=== PATIENT | female | born 1985 | race Hispanic/Latino ===

== ENCOUNTER → 2023-06-22 | Outpatient (CLI) | payer OTHER ==
[2023-06-22 17:25] LABS: HIV 1&2 SCREEN NEGATIVE (NEGATIVE)
== END ==
LOC: M PLALAB 10:46
PROVIDERS: ATTEND Advanced Practice Midwife
DX: O09.523 Supervision of elderly multigravida, third trimester (principal); Z3A.00 Weeks of gestation of pregnancy not specified

== ENCOUNTER → 2023-07-29 | Outpatient (CLI) | payer OTHER ==
[2023-07-29 15:48] LABS: HEPATITIS B CORE ANTIBODY IGM NEGATIVE (NEGATIVE); HEPATITIS C VIRUS ABY INDEX 0.02 INDEX (<0.8)
== END ==
LOC: M LAB 13:23
PROVIDERS: ATTEND Physician Assistant
DX: Z01.84 Encounter for antibody response examination (principal); Z11.1 Encounter for screening for respiratory tuberculosis

== ENCOUNTER → 2023-08-10 | Outpatient (REF) | payer OTHER | LOC: M SFHCWAGY 12:54 | PROVIDERS: ATTEND Advanced Practice Midwife | DX: Z36.85 Encounter for antenatal screening for Streptococcus B (principal); Z3A.36 36 weeks gestation of pregnancy ==

== ENCOUNTER → 2023-08-12 | Outpatient (CLI) | payer OTHER | LOC: M LAB 11:49 | PROVIDERS: ATTEND Physician Assistant | DX: Z11.3 Encounter for screening for infections with a predominantly sexual mode of transmission (principal) ==

== ENCOUNTER 2023-09-03 20:18 | Inpatient (IN) | payer OTHER ==
[~2023-09-03] VITALS: Ht 160 cm; Wt 67.9 kg
[2023-09-03 20:28] VITALS: BP 116/73
[2023-09-03] MEDS ORDERED: LIDOCAINE 1% MDV 20ML VIAL INFIL PRN (20:50)
[2023-09-03] MEDS ORDERED: TRANEXAMIC ACID INJection 1,000 MG in NS 100 ML IV PRN (20:50)
[2023-09-03] MEDS ORDERED: METHYLERGONOVINE MALEATE 0.2MG/ML 1ML VIAL IM PRN (20:50)
[2023-09-03] MEDS ORDERED: CARBOPROST TROMETHAMINE 250 MCG/ML AMP IM PRN (20:50)
[2023-09-03] MEDS ORDERED: OXYTOCIN DRIP 30 UNITS in IV 1 EA IV PRN (20:50)
[2023-09-03 21:43] LABS: MEAN CORPUSCULAR HEMOGLOBIN 32.3 pg (27.0-33.0); MEAN CORPUSCULAR HGB CONC 35.1 g/dl (32.0-36.5); MEAN CORPUSCULAR VOLUME 91.8 fl (80.0-96.0); PLATELET COUNT, AUTOMATED 179 10^3/uL (150-450); RED BLOOD COUNT 4.03 10^6/uL (4.00-5.40); WHITE BLOOD COUNT 9.4 10^3/uL (4.0-10.0)
[2023-09-03] MEDS ORDERED: PRENTAB9 PO (21:57)
[2023-09-03 23:42] VITALS: BP 96/54
[2023-09-04] VITALS (29 sets, daily range): BP systolic 96–185; BP diastolic 53–132; TEMP 98.3; O2SAT 97–99
[2023-09-04] MEDS: LR 1,000 ML IV ONE (02:16)
[2023-09-04] MEDS ORDERED: ePHEDrine SULFATE 25 MG/5 ML(5MG/ML) SYRINGE IVP PRN (02:50)
[2023-09-04] MEDS ORDERED: diphenhydrAMINE 50MG/ML VIAL IV PRN (02:50)
[2023-09-04] MEDS ORDERED: NALOXONE INJ 0.4MG/1ML VIAL IV PRN (02:50)
[2023-09-04] MEDS ORDERED: EPIDURAL/PCA KEYS XX PRN (02:50)
[2023-09-04] MEDS ORDERED: LR 500 ML IV PRN (02:50)
[2023-09-04] MEDS: FENTANYL/ROPIVACAINE/NACL BAG 100 ML EPIDURAL SCH (03:26)
[2023-09-04] MEDS: LR 1,000 ML IV SCH (03:26)
[2023-09-04] MEDS: ONDANSETRON 4MG 2ML VIAL IV PRN (03:46)
[2023-09-04] MEDS: OXYTOCIN DRIP 30 UNITS in IV 1 EA IV SCH ×2 (04:23→07:15)
[2023-09-04] MEDS ORDERED: ONDANSETRON 4MG 2ML VIAL IV PRN (07:10)
[2023-09-04] MEDS ORDERED: ACETAMINOPHEN TAB 650MG DOSE (2X325MG) PO PRN (07:10)
[2023-09-04] MEDS ORDERED: DIBUCAINE 1% OINTMENT 30GM TOP PRN (07:10)
[2023-09-04] MEDS ORDERED: RHOGAM 300MCG (1500IU) INJ IM SCH (07:10)
[2023-09-04] MEDS ORDERED: ANUSOL HC CREAM 30GM TOP PRN (07:10)
[2023-09-04] MEDS ORDERED: LR 1,000 ML IV SCH (07:45)
[2023-09-04] MEDS: IBUPROFEN 600MG TAB PO PRN (08:37)
[2023-09-04] MEDS: PRENATAL VITAMINS CHEWABLE TABLET PO SCH (08:37)
[2023-09-04] MEDS: DOCUSATE SODIUM 100MG CAPSULE PO PRN (16:52)
[2023-09-04] MEDS: IBUPROFEN 800 MG TAB PO PRN (16:52)
[2023-09-04] MEDS: ACETAMINOPHEN 500 MG TAB PO PRN (17:50)
[2023-09-05 06:00] VITALS: BP 113/66; O2SAT 96
[2023-09-05] MEDS ORDERED: ACET-683 PO (10:44)
[2023-09-05] MEDS ORDERED: IBUP80TA PO (10:44)
[2023-09-06] MEDS ORDERED: MEASLES,MUMPS,RUBELLA VACCINE INJ (MMR-II) SC.IMMUN ONE (09:00)
== END 2023-09-05 18:13 | disposition home or self-care (01) | DRG 807 ==
LOC: M LDO 20:18 → M LDI 20:49 → M OBS 09-04 09:45
PROVIDERS: ADMIT Obstetrics & Gynecology; ATTEND Obstetrics & Gynecology
PROC: 10E0XZZ Delivery of Products of Conception, External Approach (ICD-10-PCS; principal; 2023-09-04)
DX: O48.0 Post-term pregnancy (principal); Z37.0 Single live birth; Z3A.40 40 weeks gestation of pregnancy; O09.523 Supervision of elderly multigravida, third trimester

== ENCOUNTER → 2023-12-06 | Outpatient (REF) | payer OTHER ==
[~2023-12-06] MED LIST: ACET-683 PO; IBUP80TA PO; PRENTAB9 PO
[2023-12-08 18:12] LABS: HPV APTIMA Not Detected (Not Detected)
== END ==
LOC: M SFHCWAGY 17:34
PROVIDERS: ATTEND Obstetrics & Gynecology
DX: Z12.4 Encounter for screening for malignant neoplasm of cervix (principal); Z77.9 Other contact with and (suspected) exposures hazardous to health

== ENCOUNTER → 2023-12-23 | Outpatient (CLI) | payer OTHER ==
[2023-12-23 17:37] LABS: BASO % 0.7 % (0.0-1.0); EOS # 0.1 10^3/uL (0.0-0.5); EOS % 1.5 % (0.0-3.0); HEMATOCRIT 37.1 % (36.0-47.0); HEMOGLOBIN 12.8 g/dl (12.0-15.5); LYMPH # 2.4 10^3/uL (1.5-5.0); LYMPH % 39.9 % (24.0-44.0); MEAN CORPUSCULAR HEMOGLOBIN 31.9 pg (27.0-33.0); MEAN CORPUSCULAR HGB CONC 34.5 g/dl (32.0-36.5); MEAN CORPUSCULAR VOLUME 92.5 fl (80.0-96.0); MONO # 0.4 10^3/uL (0.0-0.8); NEUTROPHILS # 3.1 10^3/uL (1.5-8.5); NEUTROPHILS % 51.7 % (36.0-66.0); PLATELET COUNT, AUTOMATED 249 10^3/uL (150-450); RED BLOOD COUNT 4.01 10^6/uL (4.00-5.40)
[2023-12-23 18:04] LABS: LIPASE 84 U/L (12-53)
[2023-12-23 18:06] LABS: ALKALINE PHOSPHATASE 91 U/L (46-116); ALT/SGPT 56 U/L (7.0-40); AST/SGOT 28 U/L (<34); BILIRUBIN,DIRECT < 0.1 MG/DL (<0.4); BILIRUBIN,TOTAL 0.2 MG/DL (0.3-1.2); BLOOD UREA NITROGEN 25 MG/DL (9-23); CALCIUM LEVEL 9.3 MG/DL (8.5-10.1); CARBON DIOXIDE LEVEL 25 MMOL/L (20-31); CHLORIDE LEVEL 108 MMOL/L (98-107); CREATININE FOR GFR 0.84 MG/DL (0.55-1.30); GLOMERULAR FILTRATION RATE > 60.0 (>60); GLUCOSE, FASTING 84 MG/DL (60-100); POTASSIUM SERUM 4.2 MMOL/L (3.5-5.1); SODIUM LEVEL 139 MMOL/L (136-145); TOTAL PROTEIN 7.5 G/DL (5.7-8.2)
== END ==
LOC: M LAB 16:59
PROVIDERS: ATTEND Family Medicine
DX: R19.7 Diarrhea, unspecified (principal)

== ENCOUNTER 2024-01-18 21:28 | Emergency (ER) | payer OTHER ==
[~2024-01-18] VITALS: Ht 160 cm; Wt 63.6 kg
[2024-01-18 21:29] VITALS: TEMP 97.8
[2024-01-18 22:38] LABS: BASO % 0.3 % (0.0-1.0); EOS % 0.3 % (0.0-3.0); HEMATOCRIT 37.1 % (36.0-47.0); HEMOGLOBIN 12.6 g/dl (12.0-15.5); LYMPH # 1.2 10^3/uL (1.5-5.0); LYMPH % 17.6 % (24.0-44.0); MEAN CORPUSCULAR HEMOGLOBIN 31.5 pg (27.0-33.0); MEAN CORPUSCULAR VOLUME 92.8 fl (80.0-96.0); MONO # 0.2 10^3/uL (0.0-0.8); MONO % 3.1 % (2.0-8.0); NEUTROPHILS # 5.4 10^3/uL (1.5-8.5); NEUTROPHILS % 78.4 % (36.0-66.0); PLATELET COUNT, AUTOMATED 216 10^3/uL (150-450); WHITE BLOOD COUNT 6.8 10^3/uL (4.0-10.0)
[2024-01-18 22:50] LABS: INR 1.06; PARTIAL THROMBOPLASTIN TIME 28.4 SECONDS (24.8-34.2); PROTHROMBIN TIME 13.4 SECONDS (12.5-14.5)
[2024-01-18 23:00] LABS: ERYTHROCYTE SEDIMENTATION RATE 19 mm/hr (0-20)
[2024-01-18] MEDS: ACETAMINOPHEN *IV* 1,000 MG in IV 1 EA IV ONE (23:09)
[2024-01-18] MEDS: NS 1,000 ML IV ONE (23:09)
[2024-01-18] MEDS: KETOROLAC 30 MG/ML 1ML VIAL IM ONE (23:10)
[2024-01-18] MEDS: METOCLOPRAMIDE INJ 10MG/2ML VIAL IV ONE (23:10)
[2024-01-18 23:11] LABS: BLOOD UREA NITROGEN 15 MG/DL (9-23); CALCIUM LEVEL 9.1 MG/DL (8.5-10.1); CARBON DIOXIDE LEVEL 24 MMOL/L (20-31); CHLORIDE LEVEL 109 MMOL/L (98-107); CREATININE FOR GFR 0.61 MG/DL (0.55-1.30); GLOMERULAR FILTRATION RATE > 60.0 (>60); GLUCOSE, FASTING 132 MG/DL (60-100); SODIUM LEVEL 140 MMOL/L (136-145)
[2024-01-18] MEDS ORDERED: ISOVUE-370 76% 100ML VIAL As Ordered ONE (23:15)
[2024-01-19 00:30] VITALS: BP 110/69
[2024-01-19 00:43] VITALS: O2SAT 98
== END 2024-01-19 01:16 | disposition home or self-care (01) ==
LOC: M ED 21:28
DX: G43.909 Migraine, unspecified, not intractable, without status migrainosus (principal); Z79.1 Long term (current) use of non-steroidal anti-inflammatories (NSAID); Z79.899 Other long term (current) drug therapy
CPT/HCPCS: 70450; 70480; 70496; 80048; 85025; 85610; 85652; 85730; 96365; 96366; 96372; 96375; 99284; J0131; J1100; J1885; J2765; Q9967